=== PATIENT | female | born 1980 | race Caucasian/White ===

== ENCOUNTER 2017-12-09 18:06 | Emergency (ER) | payer SELFPAY ==
[~2017-12-09] VITALS: Ht 167.6 cm; Wt 84.1 kg
[2017-12-09 18:09] VITALS: BP 127/80; PULSE 85; RESP 16; TEMP 98.6; O2SAT 98
[2017-12-09 19:31] LABS: AMORPHOUS SEDIMENT, URINE RARE; BACTERIA, URINE RARE /hpf; BILIRUBIN, URINE NEG (NEG); BLOOD, URINE NEG (NEG); GLUCOSE,URINE NEG (NEG); KETONE, URINE NEG (NEG); MUCUS URINE FEW /lpf (OCC); NITRITE,URINE NEG (NEG); PH, URINE 5.5 (5.0-8.5); SQUAMOUS EPITHELIAL CELL URINE 9 /hpf (0-5); URINE COLOR YELLOW (YELLW/STRAW); URINE LEUKOCYTE ESTERASE LARGE (NEG)
[2017-12-09] MEDS ORDERED: SODIUM CHLOR 0.9% 1000 ML INJ 1,000 ML IV ONE (20:15)
--- NOTE | 2017-12-09 20:33 | PD ---
HPI Chief Complaint: General Weakness Time Seen by Provider: 20:09 Travel History International Travel<30 days: No Contact w/Intl Traveler<30days: No Traveled to known affect area: No History of Present Illness HPI 37-year-old female here for evaluation of generalized weakness, generalized malaise, bilateral ankle edema, and right axillary tenderness. Patient reports that for the last week or so she has been having increased weakness for the last week. No fevers. No cough. For the last 2 days she noticed some bilateral ankle swelling that seemed to be worse in the mornings. No history of DVT or PE. No chest pain or dyspnea. No abdominal pain, nausea, vomiting. Today she had pain in her right axilla. She shaved her bilateral axillary regions yesterday. She denies any direct trauma. No dyspnea. No illicit drug use. [facility] Past Medical History Anemia: Yes ?: Not LMP: 11/14/2017 Dilation and Curettage (D&C): Yes Tubal Ligation: Yes Past Surgical History Cholecystectomy: Yes Social History Alcohol Use: Yes (rarely) Tobacco Use: Yes Substance Use: No Allergies-Medications (Allergen,Severity, Reaction): Coded Allergies: quetiapine (Verified Allergy, Unknown, 12/09/17) Review of Systems Except as stated in HPI: all other systems reviewed are Neg Physical Exam Narrative GENERAL: Well-developed, well-nourished, awake, alert, comfortable, no apparent distress. SKIN: Focused skin assessment warm/dry. No rash. HEAD: Atraumatic. Normocephalic. EYES: Pupils equal and round. No scleral icterus. No injection or drainage. ENT: Mucous membranes pink and moist. Poor dentition. NECK: Trachea midline. No JVD. CARDIOVASCULAR: Regular rate and rhythm. Distal pulses brisk and equal bilaterally. RESPIRATORY: No accessory muscle use. Clear to auscultation. Breath sounds equal bilaterally. GASTROINTESTINAL: Abdomen soft, non-tender, nondistended. MUSCULOSKELETAL: No obvious deformities. No clubbing. No cyanosis. No edema. Bilateral calves are supple, nontender. Bilateral axilla without masses, without warmth or erythema, without lymphadenopathy. NEUROLOGICAL: Awake and alert. No obvious cranial nerve deficits. Motor grossly within normal limits. Normal speech. PSYCHIATRIC: Appropriate mood and affect; insight and judgment normal. Data Data Last Documented VS Vital Signs Date Time Temp Pulse Resp B/P (MAP) Pulse Ox O2 Delivery O2 Flow Rate FiO2 12/09/17 18:09 98.6 85 16 127/80 (96) 98 Room Air Orders Orders Complete Blood Count With Diff (12/09/17 18:15) Comprehensive Metabolic Panel (12/09/17 18:15) Urinalysis - C+S If Indicated (12/09/17 18:15) Ed Urine Pregnancytest Poc (12/09/17 18:31) Influenzae A/B Antigen (12/09/17 20:14) Sodium Chlor 0.9% 1000 Ml Inj (Ns 1000 M (12/09/17 20:15) Monoscreen (12/09/17 20:14) Thyroid Stimulating Hormone (12/09/17 20:29) Creatine Kinase (Cpk) (12/09/17 20:35) Chest, Single Ap (12/09/17 ) Urine Culture (12/09/17 22:34) Nitrofurantoin Monohyd Macrocr (Macrobid (12/09/17 22:45) Labs Laboratory Tests Test 12/09/17 18:35 12/09/17 20:35 12/09/17 20:40 Urine Color YELLOW Urine Turbidity HAZY Urine pH 5.5 Urine Specific [place] 1.024 Urine Protein TRACE mg/dL Urine Glucose (UA) NEG mg/dL Urine Ketones NEG mg/dL Urine Occult Blood NEG Urine Nitrite NEG Urine Bilirubin NEG Urine Urobilinogen LESS THAN 2.0 MG/DL Urine Leukocyte Esterase LARGE Urine RBC 1 /hpf Urine WBC 4 /hpf Urine Squamous Epithelial Cells 9 /hpf Urine Amorphous Sediment RARE Urine Bacteria RARE /hpf Urine Mucus FEW /lpf Microscopic Urinalysis Comment CULT NOT INDICATED White Blood Count 6.8 TH/MM3 Red Blood Count 4.61 MIL/MM3 Hemoglobin 13.7 GM/DL Hematocrit 40.1 % Mean Corpuscular Volume 86.9 FL Mean Corpuscular Hemoglobin 29.7 PG Mean Corpuscular Hemoglobin Concent 34.2 % Red Cell Distribution Width 13.8 % Platelet Count 206 TH/MM3 Mean Platelet Volume 10.0 FL Neutrophils (%) (Auto) 60.0 % Lymphocytes (%) (Auto) 31.1 % Monocytes (%) (Auto) 6.6 % Eosinophils (%) (Auto) 1.9 % Basophils (%) (Auto) 0.4 % Neutrophils # (Auto) 4.1 TH/MM3 Lymphocytes # (Auto) 2.1 TH/MM3 Monocytes # (Auto) 0.5 TH/MM3 Eosinophils # (Auto) 0.1 TH/MM3 Basophils # (Auto) 0.0 TH/MM3 CBC Comment DIFF FINAL Differential Comment Blood Urea Nitrogen 14 MG/DL Creatinine 0.87 MG/DL Random Glucose 82 MG/DL Total Protein 7.7 GM/DL Albumin 3.4 GM/DL Calcium Level 9.0 MG/DL Alkaline Phosphatase 103 U/L Aspartate Amino Transf (AST/SGOT) 35 U/L Alanine Aminotransferase (ALT/SGPT) 45 U/L Total Bilirubin 0.2 MG/DL Sodium Level 138 MEQ/L Potassium Level 3.9 MEQ/L Chloride Level 105 MEQ/L Carbon Dioxide Level 28.8 MEQ/L Anion Gap 4 MEQ/L Estimat Glomerular Filtration Rate 72 ML/MIN Total Creatine Kinase 185 U/L Monoscreen NEG MDM Medical Decision Making Medical Screen Exam Complete: Yes Emergency Medical Condition: Yes Differential Diagnosis Anemia, metabolic abnormality, influenza, UTI Narrative Course Vital signs reviewed and are within normal limits. CBC is unremarkable. CMP is unremarkable. Total CK is 185. UA: Large leukocyte esterase, rare bacteria, few mucus, hazy urine. Monospot is negative. Influenza is negative. Chest the chest shows no acute disease. Patient was made aware of all findings. She is resting comfortably. She is in no respiratory distress. There is no appreciable lower extremity edema on my exam. Exam is not consistent with a DVT. Patient will be started on Macrobid for her UA findings and urine culture will be obtained. She is stable for discharge home with outpatient follow-up with a primary care physician this week. She was informed on when to return to the emergency department. She verbalizes understanding and agreement with plan. Diagnosis Primary Impression: UTI (urinary tract infection) Qualified Codes: N39.0 - Urinary tract infection, site not specified Additional Impressions: Generalized weakness Bilateral lower extremity edema Referrals: Primary Care Physician 3 days Additional Instructions: Follow-up with a primary care physician this week. Return to the emergency department for worsening symptoms or any other concerns. Scripts Nitrofurantoin Monohydrate Macrocrystals (Macrobid) 100 Mg Cap 100 MG PO BID for Infection for 5 Days, #10 CAP 0 Refills Prov: Osmin Crowell MD 12/09/17 Disposition: 01 DISCHARGE HOME Condition: Stable Osmin Crowell MD Dec 09, 2017 20:33
[2017-12-09 21:02] LABS: AUTOMATED NEUTROPHIL # 4.1 TH/MM3 (1.8-7.7); BASOPHIL % 0.4 % (0.0-2.0); EOSINOPHIL # 0.1 TH/MM3 (0-0.4); EOSINOPHIL % 1.9 % (0.0-4.0); HEMATOCRIT 40.1 % (35.0-46.0); HEMOGLOBIN 13.7 GM/DL (11.6-15.3); LYMPH % 31.1 % (9.0-44.0); LYMPHOCYTE # 2.1 TH/MM3 (1.0-4.8); MEAN CELL VOLUME 86.9 FL (80.0-100.0); MEAN CORPUSCULAR HEMOGLOBIN 29.7 PG (27.0-34.0); MEAN CORPUSCULAR HGB CONC 34.2 % (32.0-36.0); MONO % 6.6 % (0.0-8.0); MONOCYTE # 0.5 TH/MM3 (0-0.9); PLATELET COUNT 206 TH/MM3 (150-450); RED BLOOD COUNT 4.61 MIL/MM3 (4.00-5.30); RED CELL DISTRIBUTION WIDTH 13.8 % (11.6-17.2); WHITE BLOOD COUNT 6.8 TH/MM3 (4.0-11.0)
[2017-12-09 21:12] LABS: ALBUMIN 3.4 GM/DL (3.4-5.0); AST (GOT) 35 U/L (15-37); BICARBONATE 28.8 MEQ/L (21.0-32.0); BLOOD UREA NITROGEN 14 MG/DL (7-18); CHLORIDE 105 MEQ/L (98-107); CREATININE 0.87 MG/DL (0.50-1.00); GLOMERULAR FILTRATION RATE 72 ML/MIN (>89); GLUCOSE,RANDOM 82 MG/DL (74-106); SODIUM (NA) 138 MEQ/L (136-145)
[2017-12-09 21:20] LABS: ALKALINE PHOSPHATASE 103 U/L (45-117); ALT (GPT) 45 U/L (10-53); TOTAL BILIRUBIN ADULT 0.2 MG/DL (0.2-1.0); TOTAL PROTEIN 7.7 GM/DL (6.4-8.2)
[2017-12-09 21:20] LABS: MONOSCREEN NEG (NEG)
--- NOTE | 2017-12-09 22:15 | RADRPT ---
EXAM DATE/TIME: 12/09/2017 21:43 [place] COMPARISON: No previous studies available for comparison. INDICATIONS : Right chest pain. MEDICAL HISTORY : Anemia SURGICAL HISTORY : None. ENCOUNTER: Initial ACUITY: 1 day PAIN SCORE: 3/10 LOCATION: Bilateral chest FINDINGS: A single view of the chest demonstrates the lungs to be symmetrically aerated without evidence of mas s, infiltrate or effusion. The cardiomediastinal contours are unremarkable. Osseous structures are intact. CONCLUSION: No acute disease. Mitul Lr MD on December 09, 2017 at 22:12 Board Certified Radiologist. This report was verified electronically.
[2017-12-09] MEDS ORDERED: MACR100C2 PO (22:41)
[2017-12-09] MEDS ORDERED: NITROFURANTOIN MONOHYD MACROCR 100 MG CAP PO ONE (22:45)
== END 2017-12-09 23:19 | disposition home or self-care (01) ==
LOC: NEPD 18:06
DX: N39.0 Urinary tract infection, site not specified (principal); R53.1 Weakness; R60.0 Localized edema; Z72.0 Tobacco use
CPT/HCPCS: 71045; 80053; 81001; 82550; 84443; 84703; 85025; 86308; 87086; 87804; 96360; 99284; J7030